=== PATIENT | male | born 1950 | race Caucasian/White ===

== ENCOUNTER 2017-04-17 10:41 | Emergency (ER) | payer BC ==
[2017-04-17 11:43] LABS: ABS Basophils 0.1 10^3/ul (0-0.2); ABS Eosinophils 0.1 10^3/ul (0-0.6); ABS Lymphocytes 0.8 10^3/ul (1.0-4.8); ABS Monocytes 0.6 10^3/ul (0-0.8); ABS Neutrophils 5.2 10^3/ul (1.5-7.7); ABS Nucleated RBC 0 10^3/ul; Eosinophil % 0.9 % (0-6); Hematocrit 47 % (42-52); Lymphocyte % 11.6 % (25-47); Mean Corpuscular HGB Conc 34 g/dl (31-36); Mean Corpuscular Hemoglobin 32 pg (27-31); Mean Corpuscular Volume 92 fL (80-94); Mean Platelet Volume 8 um3 (7.4-10.4); Nucleated Red Blood Cells % 0; Platelet Count 206 10^3/ul (150-450); Red Blood Count 5.04 10^6/ul (4.0-5.4); Red Cell Distribution Width 13 % (10.5-15); White Blood Count 6.8 10^3/ul (3.5-10.8)
[2017-04-17 12:02] LABS: EGFR Non-African American 106.8 (>60)
--- NOTE | 2017-04-17 12:25 | RAD ---
INDICATION: Chest pain and left arm numbness COMPARISON: Chest x-ray dated April 14, 2016 TECHNIQUE: PA and lateral views of the chest were obtained. FINDINGS: The heart and mediastinum are normal in size and contour. The lungs are grossly clear. There is no evidence of large pleural effusion. Visualized bones are normal for the patient's age. There is no radiographic evidence of free air beneath the diaphragm IMPRESSION: No radiographic evidence of acute cardiopulmonary disease.
[2017-04-17] MEDS ORDERED: HYDROcodone/ACETAMIN 5-325 MG* 1 TAB PO ONE (13:21)
[2017-04-17] MEDS ORDERED: Cyclobenzaprine TAB* 10 MG PO ONE (13:21)
[2017-04-17 16:09] VITALS: BP 159/89
--- NOTE | 2017-04-17 16:35 | ED ---
Luis Swanson Tecjoon, scribed for Michele Miles MD on 04/17/17 at 1124 . Upper Extremity Pain - HPI Summary HPI Summary: This patient is a 66 year old male presenting to [facility] accompanied by son with a chief complaint of left arm pain and back pain for around a month. Patient states that the arm pain is described as pins and needles and the back pain is a sharper pain. The pain is rated 2/10 in severity. Symptoms aggravated by palpation. Symptoms alleviated by nothing. Patient additionally reports chest soreness. Patient denies neck pain. Patient states he had an heart attack a year ago. - History of Current Complaint Chief Complaint: EDExtremityUpper Stated Complaint: CHEST PAIN,LEFT ARM NUMBNESS Hx Obtained From: Patient Onset/Duration: Started Weeks Ago - 4-5, Still Present Timing: Constant Severity Currently: Mild - 2/10 Pain Location: Arm - left Aggravating Factor(s): Other - palpation Alleviating Factor(s): Nothing Associated Signs & Symptoms: Positive: Negative - neck pain, Other - Risk Factors Non-Orthopedic Risk Factor: Referred Pain from Chest - chest "soreness", back pain - Allergies/Home Medications Allergies/Adverse Reactions: Allergies Allergy/AdvReac Type Severity Reaction Status Date / Time No Known Allergies Allergy Verified 08/09/15 10:02 Home Medications: Home Medications Atenolol [Tenormin 25 MG] 50 mg PO DAILY 04/17/17 [History Confirmed 04/17/17] Valsartan 80 mg PO DAILY 04/17/17 [History Confirmed 04/17/17] PMH/Surg Hx/FS Hx/Imm Hx Previously Healthy: No Cardiovascular History: Reports: Hx Myocardial Infarction, Other Cardiovascular Problems/Disorders - 7 YRS AGO CARDIAC CATH History: Reports: Hx Kidney Stones Sensory History: Reports: Hx Contacts or Glasses Opthamlomology History: Reports: Hx Contacts or Glasses Infectious Disease History: No Infectious Disease History: Denies: Traveled Outside the [place] in Last 30 Days - Family History Known Family History: Positive: Cardiac Disease, Hypertension - Social History Occupation: Employed Full-time Lives: With Family Alcohol Use: Occasionally Hx Substance Use: Yes Substance Use Type: Reports: Marijuana Hx Tobacco Use: Yes Smoking Status (MU): Former Smoker - for 10 years Type: Cigarettes Have You Smoked in the Last Year: No Review of Systems Positive: Chest Pain Positive: Other - back pain, left arm pain Neurological: Negative - neck pain All Other Systems Reviewed And Are Negative: Yes Physical Exam - Summary Physical Exam Summary: VITAL SIGNS: Reviewed. GENERAL: Patient is a well-developed and nourished male who is lying comfortable in the stretcher. Patient is not in any acute respiratory distress. HEAD AND FACE: No signs of trauma. No ecchymosis, hematomas or skull depressions. No sinus tenderness. EYES: PERRLA, EOMI x 2, No injected conjunctiva, no nystagmus. EARS: Hearing grossly intact. Ear canals and tympanic membranes are within normal limits. MOUTH: Oropharynx within normal limits. NECK: Supple, trachea is midline, no adenopathy, no JVD, no carotid bruit, no c- spine tenderness, neck with full ROM. CHEST: Symmetric, no tenderness at palpation LUNGS: Clear to auscultation bilaterally. No wheezing or crackles. CVS: Regular rate and rhythm, S1 and S2 present, no murmurs or gallops appreciated. ABDOMEN: Soft, non-tender. No signs of distention. No rebound no guarding, and no masses palpated. Bowel sounds are normal. BACK: Tenderness to left scapula EXTREMITIES: FROM in all major joints, no edema, no cyanosis or clubbing. NEURO: Alert and oriented x 3. No acute neurological deficits. Speech is normal and follows commands. SKIN: Dry and warm Triage Information Reviewed: Yes Vital Signs On Initial Exam: Initial Vitals Temp Pulse Resp BP Pulse Ox 97.1 F 57 16 193/100 98 04/17/17 10:43 04/17/17 10:43 04/17/17 10:43 04/17/17 10:43 04/17/17 10:43 Vital Signs Reviewed: Yes Diagnostics - Vital Signs Vital Signs Temp Pulse Resp BP Pulse Ox 04/17/17 10:43 97.1 F 57 16 193/100 98 - Laboratory Lab Results: Lab Results 04/17/17 04/17/17 04/17/17 Range/Units 11:27 11:27 11:27 WBC 6.8 (3.5-10.8) 10^3/ul RBC 5.04 (4.0-5.4) 10^6/ul Hgb 16.0 (14.0-18.0) g/dl Hct 47 (42-52) % MCV 92 (80-94) fL MCH 32 H (27-31) pg MCHC 34 (31-36) g/dl RDW 13 (10.5-15) % Plt Count 206 (150-450) 10^3/ul MPV 8 (7.4-10.4) um3 Neut % (Auto) 76.3 (38-83) % Lymph % (Auto) 11.6 L (25-47) % [place] % (Auto) 9.6 H (1-9) % Eos % (Auto) 0.9 (0-6) % Baso % (Auto) 1.6 (0-2) % Absolute Neuts (auto) 5.2 (1.5-7.7) 10^3/ul Absolute Lymphs (auto) 0.8 L (1.0-4.8) 10^3/ul Absolute Monos (auto) 0.6 (0-0.8) 10^3/ul Absolute Eos (auto) 0.1 (0-0.6) 10^3/ul Absolute Basos (auto) 0.1 (0-0.2) 10^3/ul Absolute Nucleated RBC 0 10^3/ul Nucleated RBC % 0 Sodium 138 (133-145) mmol/L Potassium 3.9 (3.5-5.0) mmol/L Chloride 106 (101-111) mmol/L Carbon Dioxide 26 (22-32) mmol/L Anion Gap 6 (2-11) mmol/L BUN 13 (6-24) mg/dL Creatinine 0.73 (0.67-1.17) mg/dL Est GFR ( Amer) 137.4 (>60) Est GFR (Non-Af Amer) 106.8 (>60) BUN/Creatinine Ratio 17.8 (8-20) Glucose 116 H (70-100) mg/dL Calcium 9.7 (8.6-10.3) mg/dL Total Bilirubin 0.80 (0.2-1.0) mg/dL AST 35 (13-39) U/L ALT 59 H (7-52) U/L Alkaline Phosphatase 99 (34-104) U/L Total Creatine Kinase 135 (10-223) U/L CK-MB (CK-2) 3.2 (0.6-6.3) ng/mL Troponin I 0.01 (<0.04) ng/mL B-Natriuretic Peptide 100 ( - 100) pg/mL Total Protein 7.6 (6.4-8.9) g/dL Albumin 4.7 (3.2-5.2) g/dL Globulin 2.9 (2-4) g/dL Albumin/Globulin Ratio 1.6 (1-3) TSH 2.16 (0.34-5.60) mcIU/mL Thyroxine (T4) 8.98 (6.09-12.23) mcg/mL 04/17/17 Range/Units 14:29 WBC (3.5-10.8) 10^3/ul RBC (4.0-5.4) 10^6/ul Hgb (14.0-18.0) g/dl Hct (42-52) % MCV (80-94) fL MCH (27-31) pg MCHC (31-36) g/dl RDW (10.5-15) % Plt Count (150-450) 10^3/ul MPV (7.4-10.4) um3 Neut % (Auto) (38-83) % Lymph % (Auto) (25-47) % [place] % (Auto) (1-9) % Eos % (Auto) (0-6) % Baso % (Auto) (0-2) % Absolute Neuts (auto) (1.5-7.7) 10^3/ul Absolute Lymphs (auto) (1.0-4.8) 10^3/ul Absolute Monos (auto) (0-0.8) 10^3/ul Absolute Eos (auto) (0-0.6) 10^3/ul Absolute Basos (auto) (0-0.2) 10^3/ul Absolute Nucleated RBC 10^3/ul Nucleated RBC % Sodium (133-145) mmol/L Potassium (3.5-5.0) mmol/L Chloride (101-111) mmol/L Carbon Dioxide (22-32) mmol/L Anion Gap (2-11) mmol/L BUN (6-24) mg/dL Creatinine (0.67-1.17) mg/dL Est GFR ( Amer) (>60) Est GFR (Non-Af Amer) (>60) BUN/Creatinine Ratio (8-20) Glucose (70-100) mg/dL Calcium (8.6-10.3) mg/dL Total Bilirubin (0.2-1.0) mg/dL AST (13-39) U/L ALT (7-52) U/L Alkaline Phosphatase (34-104) U/L Total Creatine Kinase (10-223) U/L CK-MB (CK-2) (0.6-6.3) ng/mL Troponin I 0.01 (<0.04) ng/mL B-Natriuretic Peptide ( - 100) pg/mL Total Protein (6.4-8.9) g/dL Albumin (3.2-5.2) g/dL Globulin (2-4) g/dL Albumin/Globulin Ratio (1-3) TSH (0.34-5.60) mcIU/mL Thyroxine (T4) (6.09-12.23) mcg/mL Result Diagrams: 04/17/17 11:27 04/17/17 11:27 Lab Statement: Any lab studies that have been ordered have been reviewed, and results considered in the medical decision making process. - Radiology CXR Xray Interpretation: No Acute Changes - IMPRESSION: No radiographic evidence of acute cardiopulmonary disease. ED physician has reviewed this radiology report. Radiology Interpretation Completed By: Radiologist Course/Dx - Course Course Of Treatment: This patient is a 66 year old male presenting to [facility] accompanied by son with a chief complaint of left arm pain and back pain for around a month. Patient states that the arm pain is described as pins and needles and the back pain is a sharper pain. The pain is rated 2/10 in severity. Symptoms aggravated by palpation. Symptoms alleviated by nothing. Patient additionally reports chest soreness. Patient denies neck pain. Patient states he had a heart attack a year ago. CXR reveals, per radiologist, IMPRESSION: No radiographic evidence of acute cardiopulmonary disease. ED physician has reviewed this radiology report. Bloodwork obtained. In the ED course the patient was given hydrocodone, cyclobenzaprine. This medications improve the pain and now he is asymptomatic. 2 troponins are negative. Patient will be discharged with atypical chest pain and back pain and a prescription for cyclobenzaprine and hydrocodone. Patient is advised to follow up with PCP in 3 days. The patient is agreeable with this plan. - Diagnoses Differential Diagnosis/HQI/PQRI: Positive: Strain, Sprain, Other - ACS, HI, CHF Provider Diagnoses: Atypical chest pain, Back pain Discharge - Discharge Plan Condition: Stable Disposition: HOME Prescriptions: Cyclobenzaprine TAB* [Flexeril 10 MG TAB*] 10 mg PO TID PRN #12 tab PRN Reason: Pain HYDROcodone/ACETAMIN 5-325 MG* [Lerona 5-325 TAB*] 1 tab PO Q6H PRN #12 tab MDD 4 PRN Reason: Pain Patient Education Materials: Chest Pain (ED), Back Pain (ED) Referrals: Darius Alberts MD [Primary Care Provider] - 3 Days Additional Instructions: Patient will be discharged with atypical chest pain and back pain and a prescription for cyclobenzaprine and hydrocodone. Patient is advised to follow up with PCP in 3 days. The patient is agreeable with this plan. Return to the ED for persisting or worsening symptoms. The documentation as recorded by the Luis toth Tecjoon accurately reflects the service I personally performed and the decisions made by Jd bello Walter, MD.
== END 2017-04-17 16:08 | disposition home or self-care (01) ==
LOC: ED 10:41
DX: R07.89 Other chest pain (principal); M54.9 Dorsalgia, unspecified; M54.2 Cervicalgia; R07.9 Chest pain, unspecified; Z87.891 Personal history of nicotine dependence
CPT/HCPCS: 36415; 71020; 80053; 82550; 82553; 83880; 84436; 84443; 84484; 85025; 99283; A9270-GY

== ENCOUNTER 2018-01-07 08:18 | Inpatient (IN) | payer BC ==
[2018-01-07] MEDS ORDERED: NS 0.9% 1000 ML* 1,000 ML IV ONE (08:22)
[2018-01-07] MEDS ORDERED: Alteplase* 100 MG VIAL ONE (08:38)
--- NOTE | 2018-01-07 08:43 | ED ---
Neurological HPI - HPI Summary HPI Summary: The Patient is a 67 year old M BIBA to [facility] complaining of right-sided weakness. The pt does not provide a linear account of events. He started feeling weakness on the right side of his body at 0745 when making coffee. His last known normal is at 0645. Pt states he fell on his porch from a sitting position while awaiting EMS. The son is present, who spoke to the neighbors who called 911, and they state pt did not hit his head when he fell. EMS reported positive Vesta Stroke Test en route. Patient stated a Hx of LA with a stent but denies Hx of CVA. ED provider laid eyes on this pt at Charge Nurse desk immediately upon arrival at 0820. - History of Current Complaint Stated Complaint: CODE MARTE Time Seen by Provider: 01/07/18 08:21 Hx Obtained From: Patient, Family/Real Estate Development Manager - son present, EMS Onset/Duration: Sudden Onset, Started hours ago, Still Present Timing: Constant Onset Severity: Moderate Current Severity: Moderate Neurological Deficit Location: RUE, RLE Pain Intensity: 0 Pain Scale Used: 0-10 Numeric Character: Motor Weakness - R-side, Impaired Speech Associated Signs and Symptoms: Positive: Weakness, Impaired Speech Related Hx: Anticoagulants, ASA - Additional Pertinent History Primary Care Physician: MIRTA - Allergy/Home Medications Allergies/Adverse Reactions: Allergies Allergy/AdvReac Type Severity Reaction Status Date / Time No Known Allergies Allergy Verified 01/07/18 08:54 Home Medications: Home Medications Candesartan Cilexetil 32 mg PO DAILY 01/07/18 [History Confirmed 01/07/18] PMH/Surg Hx/FS Hx/Imm Hx Previously Healthy: No Endocrine/Hematology History: Denies: Hx Diabetes Cardiovascular History: Reports: Hx Hypertension - med controlled, Hx Myocardial Infarction, Other Cardiovascular Problems/Disorders - 7 YRS AGO CARDIAC CATH History: Reports: Hx Kidney Stones Sensory History: Reports: Hx Contacts or Glasses Opthamlomology History: Reports: Hx Contacts or Glasses Neurological History: Denies: Hx CVA - Family History Known Family History: Positive: Cardiac Disease, Hypertension - Social History Occupation: Employed Full-time Lives: Alone Alcohol Use: Occasionally Hx Substance Use: Yes Substance Use Type: Reports: Marijuana Hx Tobacco Use: Yes Smoking Status (MU): Former Smoker - for 10 years Type: Cigarettes Have You Smoked in the Last Year: No Review of Systems Negative: Fever Positive: Weakness - R sided weakness, Slurred Speech - Slightly impaired speech All Other Systems Reviewed And Are Negative: Yes Physical Exam - Summary Physical Exam Summary: GENERAL: Patient is a well-developed and nourished M who is lying comfortable in the stretcher. Patient is not in any acute respiratory distress. HEAD AND FACE: Normocephalic EYES: PERRLA, EOMI x 2. EARS: Hearing grossly intact. MOUTH: Oropharynx within normal limits. NECK: Supple, trachea is midline, no adenopathy, no JVD, no carotid bruit. CHEST: Symmetric, no tenderness at palpation LUNGS: Clear to auscultation bilaterally. No wheezing or crackles. CVS: Regular rate and rhythm, S1 and S2 present, no murmurs or gallops appreciated. ABDOMEN: Soft, non-tender. Bowel sounds are normal. No abdominal abnormal pulsations. EXTREMITIES: Full ROM in all major joints, no edema, no cyanosis or clubbing. NEURO: Alert and oriented x 3. NIH scale score of 6: Right-sided weakness. Speech is slightly slurred and follows commands. See NIH section. SKIN: Dry and warm Triage Information Reviewed: Yes Vital Signs Reviewed: Yes - [place] Coma Scale Best Eye Response: 4 - Spontaneous Best Motor Response: 6 - Obeys Commands Best Verbal Response: 5 - Oriented Coma Scale Total: 15 Diagnostics - Laboratory Result Diagrams: 01/07/18 15:10 01/07/18 08:38 Lab Statement: Any lab studies that have been ordered have been reviewed, and results considered in the medical decision making process. - Radiology Chest XRay Xray Interpretation: Positive (See Comments) - IMPRESSION: No radiographic evidence for acute cardiopulmonary abnormality on this portable chest XRay. ED provider has reviewed this report. Radiology Interpretation Completed By: Radiologist - CT Brain CT CT Interpretation: Positive (See Comments) - 1. CT finding is consistent with acute parenchymal hemorrhage at the elft basal ganglia measuring 2 cm in greatest dimension and exhibiting a mild degree of mass efect on the left lateral ventricle. 2.Mild thickening at the falx cerebri measuring just under 3 mm in thickness is concerning for extra-axial hemorrrhage in this clinical seting. 3. Left maxillary sinus mucosal disease. ED physician has reviewed this report. CT Interpretation Completed By: Radiologist - EKG EKG EKG Interpretation: At 0829 NSR @ LV[facility], 69 BPM. 0829 Cardiac Rate: NL EKG Rhythm: Sinus Rhythm EKG Interpretation: NSR at 69bpm with LVH NIH Scale - NIH Scale Level of Consciousness: Alert/Keenly Responsive Ask Patient the Month and His/Her Age: Both Correct Ask Pt to Open/Close Eyes and [place] Waitress/Waiter/Release Non-Paretic Hand: Both Correctly Best Gaze (Only Horizontal Eye Movement): Normal Visual Field Testing: No Visual Loss Facial Paresis-Pt to Smile & Close Eyes or Grimace Symmetry: Normal/Symmetrical Motor Function - Right Arm: Effort Against [place] Motor Function - Left Arm: No Drift-Holds 10 Seconds Motor Function - Right Leg: Effort Against [place] Motor Function - Left Leg: No Drift-Holds 10 Seconds Limb Ataxia-Must be out of Proportion to Weakness Present: Absent Sensory (Use Pinprick to Test Arms/Legs/Trunk/Face): Normal Best Language (Describe Picture, Name Items): Some Loss Dysarthria (Read Several Words): Slurs Some Words Extinction and Inattention: No Abnormality Total Score: 6 Course/Dx - Course Course Of Treatment: This is a 67 y/o M presenting with R-sided weakness. Nohelia marte was called. CT scan shows a L-sided basal ganglia bleed. Initially, spoke to Gabriela (telestroke) because of the code marte, but after the CT result, it was apparent that this is a hemorrhagic stroke and so no TPA indicated. I spoke to the intesivist pertaining admittance to ICU and spoke to neuro surgery. Both providers saw pt at bed side in ED. Plan to give platelets to reverse pt's anti-platet treatment. Dr. Steel, neuro surgery, said there is nothing to do surgically, need to monitor blood pressure. Pt was admitted to ICU in stable condition. Dr Mulligan discussed case with the pt's antique automobiles repairer and was ok with the plan to reverse pts platelets. Patient stable upon admission - Diagnoses Provider Diagnoses: Hemorrhagic cerebrovascular accident (CVA) During the Visit The Following Alert/Code Occurred: Code Reddy - 0810 - Critical Care Time Critical Care Time: 30-74 min Discharge - Sign-Out/Discharge Documenting (check all that apply): Patient Departure - ICU - Discharge Plan Condition: Stable Disposition: ADMITTED TO [facility] - Billing Disposition and Condition Condition: STABLE Disposition: Admitted to [facility] - Attestation Statements Document Initiated by Augie: Yes Documenting Scribe: Lacy Vizcaino Provider For Whom Augie is Documenting (Include Credential): Cinthya Vanessa MD Scribe Attestation: I, Suzannedemar Charis, scribed for Cinthya Vanessa MD on 01/07/18 at 1802. Scribe Documentation Reviewed: Yes Provider Attestation: The documentation as recorded by the scribdhaval, Lacy Vizcaino accurately reflects the service I personally performed and the decisions made by me, Iram Vanessa MD Consult Consult: AT 0826: CONSULT WITH STRONG IS AWARE OF PT, WILL AWAIT CT READ. AT 0834: CONSULT WITH DR. SCHILLING, NEURO, TELE RECOMMENDED DRAWING TPA PENDING CT READ. AT 0845: CONSULT WITH DR. SCHILLING REVIEWED CT TOGETHER, LEFT-SIDED BLEED AT 0901: CONSULT WITH DR. GRANADO, RADIOLOGY POSITIVE FOR LEFT-SIDED BLEED AT 0909: CONSULT WITH DR. MULLIGAN, FRONT OFFICE SPECIALIST ACCEPTED ADMIT TO ICU. AT 0910: CONSULT WITH DR. CRAWFORD, NEURO SURGERY. MD WILL SEE PATIENT IN ED, RECOMMENDS PLATLETS. AT 1101: CONSULT WITH DR. MULLIGAN SPOKE WITH PT'S UNIVERSITY PRESIDENT AND SAID OK TO GIVE HIM PLATELETS.
[2018-01-07] MEDS ORDERED: Labetalol IV* 5 MG/ML 20 ML VIAL IV PUSH ONE (08:48)
[2018-01-07 08:55] LABS: ABS Basophils 0 10^3/ul (0-0.2); ABS Eosinophils 0.1 10^3/ul (0-0.6); ABS Lymphocytes 1.5 10^3/ul (1.0-4.8); ABS Monocytes 0.5 10^3/ul (0-0.8); ABS Neutrophils 3.9 10^3/ul (1.5-7.7); ABS Nucleated RBC 0 10^3/ul; Eosinophil % 2.1 % (0-6); Hematocrit 45 % (42-52); Hemoglobin 15.3 g/dl (14.0-18.0); Lymphocyte % 25.1 % (25-47); Mean Corpuscular HGB Conc 34 g/dl (31-36); Mean Corpuscular Hemoglobin 31 pg (27-31); Mean Corpuscular Volume 93 fL (80-94); Mean Platelet Volume 7.8 um3 (7.4-10.4); Nucleated Red Blood Cells % 0; Platelet Count 225 10^3/ul (150-450); Red Blood Count 4.86 10^6/ul (4.00-5.40); Red Cell Distribution Width 13 % (10.5-15); White Blood Count 6.1 10^3/ul (3.5-10.8)
[2018-01-07 09:04] LABS: INR 0.9 (0.77-1.02)
[2018-01-07 09:08] LABS: EGFR Non-African American 89.4 (>60)
--- NOTE | 2018-01-07 09:08 | RAD ---
INDICATION: Right-sided weakness COMPARISON: None. TECHNIQUE: Contiguous axial sections of the brain were obtained from the skull base to the vertex without contrast. FINDINGS: At the left basal ganglia there is a hyperattenuating focus measuring approximately 1.6 x 2.2 cm in the axial plane and 2 cm in the cephalocaudal projection. This is exerting a very mild degree of exertional mass effect on the left lateral ventricle. Elsewhere there is a mild degree of subcortical and periventricular white matter hypoattenuation most consistent with mild microvascular disease. The rubio-white matter differentiation is otherwise intact and appropriately differentiated. At the posterior falx cerebri (image 21) there is hyperattenuating thickness measuring just under 3 mm. In the clinical setting of intraparenchymal hemorrhage this appearance is concerning for subarachnoid bleed along the falx cerebri. No significant focal osseous abnormality is present. The visualized portion of the left maxillary sinus exhibits fluid opacification. The mastoid air cells are well aerated bilaterally. IMPRESSION: 1. CT finding is consistent with acute parenchymal hemorrhage at the left basal ganglia measuring 2 cm in greatest dimension and exhibiting a mild degree of mass effect on the left lateral ventricle. 2. Mild thickening at the falx cerebri measuring just under 3 mm in thickness is concerning for extra-axial hemorrhage in this clinical setting. 3. Left maxillary sinus mucosal disease. Findings were discussed over the telephone with Dr. Vanessa at 0900 hours on January 07, 2018.
--- NOTE | 2018-01-07 09:10 | RAD ---
INDICATION: Acute neurologic change COMPARISON: Most recent comparison chest x-rays dated April 17, 2017 TECHNIQUE: Single AP portable view of the chest was obtained. FINDINGS: Image quality is compromised due to the relative inferiority of a portable chest x-ray. The heart and mediastinum exhibit normal size and contour. The lungs are grossly clear. There is no evidence of a large pleural effusion. Visualized bones are normal for the patient's age. IMPRESSION: No radiographic evidence for acute cardiopulmonary abnormality on this portable chest x-ray.
[2018-01-07 10:29] LABS: Urine Appearance Clear; Urine Blood Negative (Negative); Urine Color Yellow; Urine Ketones Negative (Negative); Urine Protein 1+(30 mg/dL) (Negative); Urine Red Blood Cell Trace(0-2/hpf) (Absent); Urine Specific Gravity 1.013 (1.010-1.030); Urine Urobilinogen Negative (Negative); Urine White Blood Cell Trace(0-5/hpf) (Absent)
[2018-01-07] MEDS ORDERED: Iohexol 350* (CONTRAST) 500 ML MDV IV ONE (11:48)
--- NOTE | 2018-01-07 13:47 | HP ---
ADMISSION HISTORY AND PHYSICAL: DATE OF ADMISSION: 01/07/18 REASON FOR ADMISSION: Intracerebral hemorrhage. HISTORY OF PRESENT ILLNESS: This is a 67-year-old white male who was brought to the emergency department this AM because of altered mental status, and was discovered to have a spontaneous intracerebral hemorrhage involving the left thalamic region. The patient has a history of coronary artery disease, status post stent placement in 2016 and treated with prasugrel (10 mg daily) and low- dose aspirin (81 mg daily) - he also has a history of hypertension, Rxed with candesartan (32 mg daily) and atenolol (50 mg daily). Patient was awake in ED but was aphasic and unable to provide an accurate history. According to his patient's son, who was present at the bedside, there is no recent history of trauma or abnormal bleeding. No other history was available at the time of admission. MEDICATIONS: Outpatient medications: 1. Candesartan 32 mg daily. 2. Prasugrel 10 mg daily. 3. Aspirin 81 mg daily. 4. Atenolol 50 mg daily. 5. Lipitor 80 mg daily. 6. Flexeril 10 mg 3 times a day. 7. Hydrocodone/acetaminophen 5/325 one tab q.6 p.r.n. ALLERGIES: There are no known drug allergies. SOCIAL HISTORY: The patient lives alone and, according to the son, there is no history of alcohol or illicit drug abuse. PHYSICAL EXAMINATION GENERAL: The patient was alert and was able to mimic motions, but unable to verbally answer questions. VITAL SIGNS: Temp 97.6, blood pressure 138/75, heart rate 66, respirations 43, respiratory rate 18, O2 sat 96% on room air. HEENT: Pupils mid position and reactive. Extraocular muscle movements appeared full. There was no facial asymmetry. NECK: Supple. LUNGS: Clear to auscultation. CARDIAC: Rhythm regular. There were no murmurs or rubs. ABDOMEN: Soft, nontender. EXTREMITIES: Warm. No cyanosis or edema. NEUROLOGIC: Weakness involving the right arm and right leg - the strength at 2/ 4 in both limbs. There was also an expressive aphasia, as noted previously. ADMISSION LABORATORY DATA: Hemoglobin was 15, white count 6.1, platelets 225, 000. Electrolytes were normal, as was BUN and creatinine. Lactate was mildly elevated at 2.4 and glucose mildly elevated at 116. Triglycerides and total cholesterol normal. INR at 0.9 and APTT at 25.1. Initial head CT scan showed a 2 cm area of well-circumscribed hemorrhage in the left basal ganglia region with some surrounding edema and mild mass effect. Chest x-ray showed normal-sized heart and clear lung daily. EKG showed probable LVH. IMPRESSION: Spontaneous intracerebral hemorrhage, most likely related to the use of antiplatelet agents. The patient was seen by the neurosurgery service, who do not feel that surgery is indicated at this time. The patient is clinically stable at the time of admission. MANAGEMENT PLAN: 1. Platelet transfusion to partially correct the platelet function deficits. 2. If needed, nicardipine to keep systolic BP at 140-[address] scan in 3 hours. 4. Neurosurgery and neurology services are actively involved. CRITICAL CARE TIME: 60 minutes. [id number] #: [id number] ADAM
[2018-01-07 15:22] LABS: Mean Platelet Volume 7.6 um3 (7.4-10.4); Platelet Count 221 10^3/ul (150-450)
[2018-01-07] MEDS ORDERED: Famotidine IV * 20 MG in NS 0.9% 100 ML* 100 ML IVPB SCH (16:00)
[2018-01-07 16:30] VITALS: BP 122/84
[2018-01-07] MEDS ORDERED: Famotidine IV* 10 MG/ML 2 ML (20 mg) IV SLOW PU SCH (17:00)
--- NOTE | 2018-01-07 18:23 | RAD ---
INDICATION: Intraparenchymal hemorrhage COMPARISON: Same day CT of the brain acquired at 0827 hours TECHNIQUE: Contiguous axial sections of the brain were obtained from the skull base to the vertex without contrast. FINDINGS: Again seen is hemorrhage at the left basal ganglia that is slightly larger than the previous CT examination now measuring 2.4 x 2.8 cm in the axial plane, previously 2.0 x 2.3 cm. In the cephalocaudal projection the hemorrhage measures 2.3 cm, previously 2 cm. There is extension of the hemorrhage extending superiorly and medially tracking along the superior and lateral margin of the left ventricle. In its greatest dimension this hemorrhage measures 3.9 cm in the axial plane (image 24). The spleen was not seen on the previous CT examination. There is now a small amount of mass effect on the left lateral ventricle. The posterior falx cerebra I again measures 3 mm in thickness similar to the previous CT examination. In this clinical setting this may represent a small amount of extra-axial hemorrhage. No significant focal osseous abnormality is present. The visualized portion of the paranasal sinuses appear clear. The mastoid air cells are well aerated bilaterally. IMPRESSION: There is been a small interval increase in the size of the left basal ganglia intraparenchymal hemorrhage. Since the CT acquired at 0827 hours on January 07, 2018 is blood tracking from the basal ganglia along the superior lateral margin of the right ventricle. There is a small increase in the degree of mass effect of the ventricle but no substantial midline shift. Findings were discussed over the telephone with Dr. Franklin at 1815 hours on January 07, 2018.
--- NOTE | 2018-01-07 21:23 | CONS ---
CC: Dr. Perez; Dr. Sullivan NEUROLOGY CONSULTATION: DATE OF CONSULT: 01/07/18 LOCATION: He is in the ICU, bed 10. REFERRING PROVIDER: Dr. Ab Franklin. CHIEF COMPLAINT: Right-sided weakness, difficulty speaking. HISTORY OF PRESENT ILLNESS: Manuel Lemon is a 67-year-old right-handed man who presented to the emergency room this morning with right-sided weakness. He was well when he got up and was getting ready for the day and realized that his right arm weak as he was making coffee. He apparently had been up for about an hour. Somehow his neighbors became aware of his plight and called 911. Records indicate that he fell while sitting on the porch waiting for the ambulance to arrive. The patient does not recall falling. He was noted to have right-sided weakness and difficulty producing words on presentation to the emergency room. Dr. Cinthya Vanessa in the emergency room assessed him as having an NIH score of 6. Teleneurology with Dr. Ochoa of [facility] was consulted. TPA was drawn up, but CT of the brain revealed a left subcortical hemorrhage and it was therefore not given. He was admitted. He was seen by Dr. Perez in consultation from Neurosurgery. Dr. Franklin asked me to evaluate the patient. Mr. Lemon has a history of coronary artery disease and had a stent placed in 2016. He has been on Effient and aspirin 81 mg since. He has a history of hypertension as well as coronary artery disease. There is no history of diabetes. He does not drink alcohol. There was no history of head trauma other than today. PAST MEDICAL HISTORY: Notable for ventricular tachycardia, coronary artery disease, hypertension, prior tobacco use, history of cardiac catheterization with stenting. MEDICATIONS AT HOME: Include: 1. Aspirin 81 mg p.o. q. day. 2. Atorvastatin 80 mg p.o. q. day. 3. Atenolol 50 mg p.o. q. day. 4. Effient 10 mg p.o. q. day. 5. Cyclobenzaprine 10 mg p.o. t.i.d. p.r.n. back pain. 6. Hydrocodone 5/325 one q.6 hours as needed for pain. 7. Candesartan 32 mg p.o. q. day. He reports that he did not take his medications yesterday as he forgot. He was going to take his medicines this morning before his stroke affected him. ALLERGIES: He does not have any drug allergies. SOCIAL HISTORY: He lives alone. He has a dog at home. He smoked cigarettes 15 years ago. He smokes marijuana apparently somewhat regularly. He does not drink alcohol. He is on disability, I believe. REVIEW OF SYSTEMS: Negative for headache. He does not believe he fell, but he clearly did as there is a bruise over his right eye. There is no prior history of stroke or seizures. There is no history of bleeding disorders. There has been no recent chest pain or shortness of breath. There is no history of pulmonary, renal, GI, , psychiatric, endocrine, rheumatological, or orthopedic disorders. He has not had any fevers or chills lately. His weight has been stable recently. PHYSICAL EXAM: He is well nourished and well hydrated. There is a fresh ecchymosis with small abrasion in the right lateral supraorbital area. Temperature is 98.2, blood pressure running as high as 154 systolic to as low as 132 systolic, diastolics are running in the 70s. Heart rate is generally in the 60s and has frequent ectopy on the monitor. Respiratory rate is 18 to 22, oxygen saturation is 97% on room air. Heart is in an irregularly irregular rhythm. I do not hear any murmurs. Neck is supple. Carotid pulses are present and there are no cervical bruits. Lungs are clear anterolaterally. There is no pedal edema. Neurological Exam: Pupils react equally from 4 to 2.5 mm to light. Eye movements are full and visual daily are full to confrontation. Funduscopic exam reveals sharp discs bilaterally without papilledema. Facial musculature is asymmetric with central pattern right facial weakness. Facial sensation to light touch and pin is diminished on the right side of the face relative to the left. There is absent pin discrimination to light touch in the right arm and leg. There is also splitting of pin discrimination on the trunk. On motor exam, he can raise the right arm up to just about to horizontal weakly. He can fully close the fist and open the hand very slowly. He cannot maintain strength against gravity in the right upper extremity for very long. In the right lower extremity, he can weakly raise the leg off the bed. He cannot sustain it. He can exhibit some ankle dorsiflexion and plantarflexion on the right, but it is quite weak. He has normal strength in the left arm and left leg. Reflexes are fairly symmetric. He has a right Babinski sign. He is alert and frustrated trying to express himself. He can produce short sentences and phrases, but is not fluent. He has great difficulty coming up with words and sometimes come up with a non-word. He seems to understand most all of the questions I ask him, but there are a couple of times where he seems confused by my directions or questions. Speech is mildly dysarthric. He is very alert. He seems to be oriented, although he has difficulty expressing himself. Memory seems relatively intact, although he does not recall falling. DIAGNOSTIC STUDIES/LAB DATA: Laboratory studies are reviewed. His admitting chemistry profile was notable for a glucose of 116 and otherwise has a normal chemistry profile. Cholesterol this morning is 114, LDL 46. Lactic acid elevated this morning at 2.4. CBC on presentation is unremarkable. Platelet count is 225,000. INR is 0.90 this morning, PTT a little low at 25.1. Urinalysis this morning notable for 1+ protein, trace leukocyte esterase, otherwise unremarkable urinalysis. CT scan of the brain is reviewed. The interpretation is approximately 2 cm intraparenchymal hemorrhage in the left basal ganglia exerting mild mass effect in the left lateral ventricle. There is also thought to be some hyperattenuation in the posterior falx cerebri suggestive of a subarachnoid hemorrhage. I reviewed the images and the hemorrhage is mainly in the left thalamus, but also appears to involve the internal capsule on the left. There appears to me to be a small amount of intraventricular blood in the posterior left lateral ventricle. I do not see any definite subarachnoid blood. Chest x-ray is interpreted as showing no acute pulmonary abnormality. IMPRESSION AND PLAN: Impression is that of a primary left hemisphere intraparenchymal hemorrhage, mainly involving the thalamus, but also the posterior limb of the internal capsule. He has loss of sensation on the right side, hemiparesis, and thalamic aphasia. Etiology is probably a primary hypertensive hemorrhage, but he is also on dual antiplatelet therapy increasing his risk of intracranial hemorrhage. He seems to be stable and his vital signs are acceptable, particularly his blood pressure. He has a fair amount of cardiac ectopy and he certainly has cardiac risk as well. His antiplatelet therapies have appropriately been stopped. Dr. Franklin has ordered for a platelet transfusion, which I agree with. Currently, his blood pressure is adequate and I would not recommend acutely lowering it, but shoot for a systolic between about 130 to 140, which is where it is at currently. I would recommend not reinstituting his statin as there is some literature suggesting increased risk of bleeding on statins and it certainly is not needed acutely. His risk of rebleeding is highest in the first [address] Franklin has ordered a followup CAT scan for later this afternoon, which I agree with. At some point, an MRI scan of the brain might be beneficial to make sure there is an underlying vascular anomaly or mass, but the current presentation suggests a primary intracranial hemorrhage I will follow him along with you. [id number]/[facility] #: [id number] ADAM
--- NOTE | 2018-01-07 22:37 | CONS ---
CONSULTATION NOTE: DATE OF CONSULT: 01/07/18 HISTORY OF PRESENT ILLNESS: The patient is a very pleasant 67-year-old gentleman with history of cardiac stent placement, on aspirin and prasugrel, who was brought to the emergency room after he was found to have a right hemiparesis and difficulty with his speech. The patient notified his neighbors and he was brought to the emergency room. No history of trauma per the son, who is at the bedside. The patient has some mild dysphasia, but he reports that he has weakness on the right side. Denies any nausea or vomiting. Denies any seizures. No episodes of urinary or GI incontinence. The patient lives alone and he is accompanied by his brother and his son. PAST MEDICAL HISTORY: The patient has history of stent placement, hypertension , coronary artery disease, and kidney stones. PAST SURGICAL HISTORY: Stent placement. MEDICATIONS: The patient was on: 1. Atenolol. 2. Aspirin. 3. Prasugrel among others. The patient missed yesterday's dose, so last time that he took anticoagulants was 48 hours ago. ALLERGIES: No known drug allergies. FAMILY HISTORY: Positive for cardiac disease, hypertension. SOCIAL HISTORY: Tobacco, negative. Alcohol, occasionally. Recreational drug use, positive for occasional marijuana. The patient is working as an employee in a company and he normally would do significant amount of physical work. PHYSICAL EXAM: The patient is not in acute distress. He is awake, alert. He is oriented x2. He is dysphasic. His pupils are equal and reactive. Cranial nerves II through XII are grossly intact. Motor: 2-3/5 in the right upper extremity, 2- 3/5 in the right lower extremity, 5/5 in the left side. The patient cannot lift his right arm above gravity to command. Sensory is grossly intact to light touch. Position intact. Deep tendon reflexes +1 bilaterally. Clonus plus-minus, Babinski positive bilaterally. Wagner's negative. No tenderness to palpation over the thoracic and lumbar spine. He has free range of motion of the cervical spine. DIAGNOSTIC STUDIES: The patient had a CT scan of his brain revealing left thalamic hemorrhage without significant midline shift. There is suspicion for interhemispheric subdural hematoma. ASSESSMENT: The patient is a very pleasant 67-year-old right-handed gentleman with right hemiparesis and dysphasia with CT scan findings consistent with left thalamic hemorrhage and history of coronary artery disease, stent placement, on aspirin and Effient. PLAN: The patient at this point was seen in the emergency room. He will be admitted by the ICU team. Dr. 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 Consider platelet transfusion, blood pressure control. The patient will be followed by Neurology also and we will recommend repeat CT scan in 6 to 8 hours and in a.m. Discussed in extent with the patient and the patient's family regarding the patient's imaging findings, diagnosis and possible prognosis including possibility for need for further imaging such as an MRI of the brain in 3 months. At this point, we would advocate for conservative treatment without surgical intervention. The patient and his family understand the need for ICU care and potentially need for rehabilitation and possible outcomes. Thank you very much for allowing us to participate in the care of this patient. Please do not hesitate to contact our office in case you have any further questions or concerns regarding the care of this patient. [id number]/[facility] #: [id number] ADAM
--- NOTE | 2018-01-08 04:36 | DS ---
DISCHARGE SUMMARY: DATE OF ADMISSION: 01/07/18. DATE OF DISCHARGE: 01/07/18. HISTORY OF PRESENT ILLNESS: The patient is a 67-year-old male who was admitted earlier today with a spontaneous intracerebral hemorrhage in the left thalamic area. Because the patient had been on anti platelet agents, platelets transfusion was administered. Patient remained clinically stable in the e mergency department. However, the plan is to transfer the patient to [facility] for an endovascu lar procedure if the hemorrhage should worsen. PHYSICAL EXAMINATION: Vital Signs: At the time of transfer, temp 99.8, blood pressure 141/71, pulse rate 64, respiratory rate 22, O2 saturation 99% on room air. Patient was awake but had an expressive aphasia. There was a right hemiparesis, with strength rated at 2/4, which did not change from the t danielle of admission. A repeat CT scan is pending. MEDICATION AT THE TIME OF TRANSFER: 1. Lactated Ringer's at 50 cc per hour. 2. IV famotidine 20 mg daily for stress ulcer prophylaxis. [id number]/[facility] #: [id number]
== END 2018-01-07 19:00 | disposition short-term general hospital (02) | DRG 44 ==
LOC: ED 08:18 → ICU 10:57
PROVIDERS: ADMIT Internal Medicine Critical Care Medicine; ATTEND Internal Medicine Critical Care Medicine
PROC: 30233R1 Transfusion of Nonautologous Platelets into Peripheral Vein, Percutaneous Approach (ICD-10-PCS; principal; 2018-01-07)
DX: I61.2 Nontraumatic intracerebral hemorrhage in hemisphere, unspecified (principal); R47.01 Aphasia; G81.91 Hemiplegia, unspecified affecting right dominant side; W18.39XA Other fall on same level, initial encounter; I10 Essential (primary) hypertension; R40.2362 Coma scale, best motor response, obeys commands, at arrival to emergency department; R40.2142 Coma scale, eyes open, spontaneous, at arrival to emergency department; R40.2252 Coma scale, best verbal response, oriented, at arrival to emergency department; R29.706 NIHSS score 6; I25.10 Atherosclerotic heart disease of native coronary artery without angina pectoris; T80.89XA Other complications following infusion, transfusion and therapeutic injection, initial encounter; I25.2 Old myocardial infarction; Z95.5 Presence of coronary angioplasty implant and graft; Y92.9 Unspecified place or not applicable; Z87.442 Personal history of urinary calculi; Z82.49 Family history of ischemic heart disease and other diseases of the circulatory system; Z72.89 Other problems related to lifestyle; Z87.891 Personal history of nicotine dependence
CPT/HCPCS: 36415; 70450; 71045; 80053; 80061; 81003; 81015; 83605; 84484; 85025; 85049; 85610; 85730; 86078; 86850; 86900; 86901; 87086; 87641; 93005; 99283; J2997; P9035

== ENCOUNTER 2018-07-29 15:32 | Emergency (ER) | payer BC, MEDICARE ==
--- NOTE | 2018-07-29 15:38 | UC ---
Ear Complaint HPI - HPI Summary HPI Summary: 2 weeks of ,worsening today right upper molar pain, right ear pain and pain in right eustation tube area--- - History of Current Complaint Chief Complaint: UCEar Stated Complaint: EAR PAIN Time Seen by Provider: 07/29/18 15:33 Hx Obtained From: Patient Onset/Duration: Gradual Onset, Lasting Weeks, Worse Since - this morning Severity Initially: Mild Severity Currently: Moderate Aggravating Factors: Other Alleviating Factors: Nothing - Allergies/Home Medications Allergies/Adverse Reactions: Allergies Allergy/AdvReac Type Severity Reaction Status Date / Time No Known Allergies Allergy Verified 07/29/18 15:39 Home Medications: Home Medications Atorvastatin* [Lipitor 80 MG*] 20 mg PO 1700 07/29/18 [History] Escitalopram Oxalate [Lexapro 10 mg] 10 mg PO DAILY 07/29/18 [History Confirmed 07/29/18] amLODIPine TAB* [Norvasc 5 mg TAB*] 5 mg PO DAILY 07/29/18 [History Confirmed ] PMH/Surg Hx/FS Hx/Imm Hx Previously Healthy: No Endocrine History: Dyslipidemia Cardiovascular History: Hypertension Psychological History: Depression - Surgical History Surgical History: None - Family History Known Family History: Positive: Cardiac Disease, Hypertension - Social History Occupation: Employed Full-time Lives: With Family Alcohol Use: Occasionally Substance Use Type: Marijuana Smoking Status (MU): Former Smoker - for 10 years Type: Cigarettes Have You Smoked in the Last Year: No - Immunization History Most Recent Influenza Vaccination: unsure; not for few years Most Recent Tetanus Shot: unk Most Recent Pneumonia Vaccination: never Review of Systems All Other Systems Reviewed And Are Negative: Yes Constitutional: Positive: Negative Skin: Positive: Negative Eyes: Positive: Negative ENT: Positive: Dental Pain, Sore Throat, Ear Ache, Sinus Pain/Tenderness Respiratory: Positive: Negative Cardiovascular: Positive: Negative Gastrointestinal: Positive: Negative Genitourinary: Positive: Negative Motor: Positive: Negative Neurovascular: Positive: Negative Musculoskeletal: Positive: Negative Neurological: Positive: Negative Psychological: Positive: Negative Is Patient Immunocompromised?: No Physical Exam Triage Information Reviewed: Yes Appearance: Well-Appearing, No Pain Distress, Well-Nourished Vital Signs Reviewed: Yes Eye Exam: Normal Eyes: Positive: Conjunctiva Clear ENT Exam: Normal ENT: Positive: Normal ENT inspection, Hearing grossly normal, Pharynx normal, Nasal congestion, TMs normal, Dental tenderness, Sinus tenderness, Uvula midline. Negative: Tonsillar swelling, Trismus, Muffled voice, Hoarse voice Dental Exam: Normal Neck exam: Normal Neck: Positive: Supple, Nontender, No Lymphadenopathy Respiratory Exam: Normal Respiratory: Positive: Chest non-tender, Lungs clear, Normal breath sounds, No respiratory distress, No accessory muscle use Cardiovascular Exam: Normal Cardiovascular: Positive: RRR, No Murmur, Pulses Normal, Brisk Capillary Refill Musculoskeletal Exam: Normal Musculoskeletal: Positive: Strength Intact, ROM Intact, No Edema Neurological Exam: Normal Neurological: Positive: Alert, Muscle Tone Normal Psychological Exam: Normal Skin Exam: Normal Ear Complaint Course/Dx - Course Course Of Treatment: warm compress, augmentin, be alert for any skin sores or rashes---follow with dentist and pcp - Differential Dx/Diagnosis Provider Diagnosis: Ear ache, Pain, dental Discharge - Sign-Out/Discharge Documenting (check all that apply): Patient Departure All imaging exams completed and their final reports reviewed: No Studies - Discharge Plan Condition: Stable Disposition: HOME Prescriptions: Amoxicillin/Clavulanate TAB* [Augmentin TAB 875*] 875 mg PO BID 10 Days #20 tab Patient Education Materials: Acetaminophen (By mouth), Ibuprofen (By mouth), Ear Infection (ED), Hypertension (ED), Warm Compress or Soak (ED) Referrals: Darius Alberts MD [Primary Care Provider] - If Needed - Billing Disposition and Condition Condition: STABLE Disposition: Home
[2018-07-29 15:57] VITALS: BP 140/70
== END 2018-07-29 16:00 | disposition home or self-care (01) ==
LOC: UCEAST 15:32
DX: H92.01 Otalgia, right ear (principal); K08.89 Other specified disorders of teeth and supporting structures; I10 Essential (primary) hypertension; F32.9 Major depressive disorder, single episode, unspecified; Z87.891 Personal history of nicotine dependence; Z79.899 Other long term (current) drug therapy
CPT/HCPCS: 99212; G0463